=== PATIENT | male | born 1990 | race American Indian/Alaskan Native ===

== ENCOUNTER 2021-10-19 07:36 | Emergency (ER) | payer SELFPAY ==
[2021-10-19 07:48] VITALS: BP 104/64
[2021-10-19] MEDS ORDERED: AZITHROMYCIN 250 MG TAB PO ONE (07:51)
[2021-10-19] MEDS ORDERED: LIDOCAINE-MPF (1%) 10 MG/1 ML VIAL 5 ML INFILTRATI ONE (07:51)
--- NOTE | 2021-10-19 07:55 | Emergency Department Report ---
ED Dysuria HPI - HPI Chief Complaint: Urogenital-Male Stated Complaint: CK STD Time Seen by Provider: 10/19/21 07:48 Severity: Moderate Symptoms: Dysuria: Yes, Frequency: No, Suprapubic Pain: No, Flank Pain: No, Fever: No, Hematuria: No, Abdominal Pain: No, Previous UTI's: No Other History: 31 yo comes to ER with penile d/c for 2 weeks. no testicular pain. no back pain. no abd pain. no lesions. no fever or chills. ED Review of Systems ROS: Stated complaint: CK STD Other details as noted in HPI Comment: All other systems reviewed and negative ED Past Medical Hx - Past Medical History Previous Medical History?: No - Surgical History Past Surgical History?: No - Family History Family history: no significant - Social History Smoking Status: Never Smoker Substance Use Type: Alcohol - Medications Home Medications: Home Medications Medication Instructions Recorded Confirmed Last Taken Type metroNIDAZOLE [Flagyl] 2,000 mg PO ONCE #4 tab 10/19/21 Unknown Rx Dysuria Exam - Exam General: Vital signs noted. No distress. Alert and acting appropriately. Exam: Yes Moist Mucous Membranes, No CVA Tenderness, No Abdominal Tenderness, No Rigidity or Guarding ED Course Vital Signs 10/19/21 07:46 Temperature 98.2 F Pulse Rate 55 L Respiratory 18 Rate Blood Pressure 104/64 O2 Sat by Pulse 99 Oximetry ED Medical Decision Making - Medical Decision Making araiza/white discharge tingling w urination 1 female partner- no longer having relations with no testicular pain educated on safe sex empiric treatment dc home with dc plan of care and pcp follow up. pt verbalizes understanding of plan of care Vital Signs 10/19/21 07:46 Temperature 98.2 F Pulse Rate 55 L Respiratory 18 Rate Blood Pressure 104/64 O2 Sat by Pulse 99 Oximetry - Differential Diagnosis std concern Critical care attestation.: If time is entered above; I have spent that time in minutes in the direct care of this critically ill patient, excluding procedure time. ED Disposition Clinical Impression: Concern about STD in male without diagnosis Disposition: 01 HOME / SELF CARE / HOMELESS Is pt being admited?: No Does the pt Need Aspirin: No Condition: Stable Additional Instructions: safe sex med as ordered today Referrals: KATERIN MADRIGAL MD [Staff Physician] - 3-5 Days Time of Disposition: 07:54
== END 2021-10-19 08:34 | disposition home or self-care (01) ==
LOC: ED 07:36
DX: Z20.2 Contact with and (suspected) exposure to infections with a predominantly sexual mode of transmission (principal)
CPT/HCPCS: 96372; 99282; J0696; J3490